=== PATIENT | female | born 1985 | race Caucasian/White ===

== ENCOUNTER 2019-02-25 01:44 | Emergency (ER) | payer SELFPAY ==
--- NOTE | 2019-02-25 01:58 | NUR ---
called in, no answer
--- NOTE | 2019-02-25 01:58 | NUR ---
Patient left without being seen. No further treatment provided. ER MD aware
== END 2019-02-25 01:58 | disposition left against medical advice (07) ==
LOC: SED 01:44
DX: Z53.21 Procedure and treatment not carried out due to patient leaving prior to being seen by health care provider (principal)